=== PATIENT | male | born 1965 ===

== ENCOUNTER → 2019-05-07 | Outpatient (CLI) | payer OTHER ==
--- NOTE | 2019-05-07 12:58 | Diagnostic Imaging Report ---
PROCEDURE: MRI lumbar spine. TECHNIQUE: Multiplanar, multisequence MRI of the lumbar spine was performed without contrast. INDICATION: Chronic back pain. 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 Those findings were again evident and no different. As seen on the prior exam, the thecal sac is generous. There is no high-grade central stenosis identified, nor is there any other significant neural foraminal narrowing. There is no abnormal signal arising from the cord or vertebral bodies to indicate an acute abnormality. There is no sign of a paraspinal mass. IMPRESSION: 1. When compared to the previous study, there has been no significant change. 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 There is no evidence for a high-grade central stenosis. 2. There is no acute bony abnormality identified, nor is there any sign of a cord lesion. Dictated by: Dictated on workstation # [id number]
== END ==
LOC: RAD 08:56
PROVIDERS: ATTEND Physician Assistant
DX: M48.061 Spinal stenosis, lumbar region without neurogenic claudication (principal)
CPT/HCPCS: 72148